=== PATIENT | female | born 1960 | race Caucasian/White ===

== ENCOUNTER 2017-03-23 05:07 | Emergency (ER) | payer SELFPAY ==
[~2017-03-23] VITALS: Ht 152.4 cm; Wt 103.8 kg
[2017-03-23] MEDS ORDERED: COCAINE 4% TOPICAL SOLN 4ML TOP ONE (08:15)
[2017-03-23] MEDS ORDERED: SILVER NITRATE APPLICATOR STICK TOP ONE (08:15)
[2017-03-23 09:35] LABS: BASOPHILS % 0.6 % (0.0-2.0); EOSINOPHILS % 0.4 % (0.0-5.0); HEMOGLOBIN. 13.9 g/dL (12.0-16.0); LYMPHOCYTES % 20.4 % (20.0-50.0); MEAN CORPUSCULAR HEMOGLOBIN 29.5 pg (28.0-32.0); MEAN CORPUSCULAR VOLUME 86.9 fL (81.0-99.0); MEAN PLATELET VOLUME 7.6 fl (7.4-10.4); MONOCYTES % 5.6 % (2.0-8.0); PLATELET 285 x1000/uL (130-400); RED BLOOD CELL COUNT 4.72 mill/uL (4.2-5.4); RED CELL DISTRIBUTION WIDTH 14.4 % (11.6-14.6)
[2017-03-23 09:41] LABS: CHLORIDE 109 mEq/L (98-107)
[2017-03-23 09:50] LABS: CARBON DIOXIDE 24 mEq/L (21-32)
[2017-03-23 11:25] LABS: CLARITY URINE CLOUDY (CLEAR); COLOR URINE YELLOW (YELLOW); GLUCOSE URINE NEGATIVE (NEGATIVE); KETONES URINE 1+ (NEGATIVE); LEUKOCYTE ESTERASE URINE 3+ (NEGATIVE); NITRITE URINE POSITIVE (NEGATIVE); OCCULT BLOOD URINE 2+ (NEGATIVE); PROTEIN URINE 1+ (NEGATIVE); SPECIFIC GRAVITY URINE 1.021 (1.005-1.030)
[2017-03-23 13:22] VITALS: BP 188/108
== END 2017-03-23 13:25 | disposition home or self-care (01) ==
LOC: ER 06:57
DX: R04.0 Epistaxis (principal); E11.9 Type 2 diabetes mellitus without complications; I10 Essential (primary) hypertension; F17.200 Nicotine dependence, unspecified, uncomplicated; F12.10 Cannabis abuse, uncomplicated
CPT/HCPCS: 30901; 36415; 80053; 81001; 85025; 99284; Z7610